=== PATIENT | female | born 2000 | race Caucasian/White ===

== ENCOUNTER 2019-09-02 21:30 | Outpatient (CLI) | payer SELFPAY ==
[2019-09-02 22:47] LABS: BASOPHILS 0.2 % (0-2); EOSINOPHILS 0 % (0-7); HEMATOCRIT 31.7 % (36.0-48.0); HEMOGLOBIN 10.3 g/dL (12-16); IMMATURE GRANULOCYTES 0.4 % (0-5); LYMPHOCYTES 8.6 % (15-50); MCH 28.3 pg (26.0-34.0); MCHC 32.5 g/dL (31.0-37.0); MCV 87.1 fL (80.0-100.0); MEAN PLATELET VOLUME 9.1 fL (7.4-10.4); MONOCYTES 4.8 % (2-11); PLATELET COUNT 234 10x3/uL (130-400); RBC 3.64 10x6/uL (4.00-5.40); RDW 12.4 % (11.5-14.5); WBC 11.4 10x3/uL (4.8-10.8)
[2019-09-02 22:56] LABS: BILIRUBIN NEGATIVE (NEGATIVE); GLUCOSE NEGATIVE (NEGATIVE); KETONE NEGATIVE (NEGATIVE); NITRITE NEGATIVE (NEGATIVE); SPECIFIC GRAVITY 1.005 (1.005-1.020); UROBILINOGEN NORMAL (NORMAL)
[2019-09-02 23:00] LABS: BACTERIA MANY /hpf (NEGATIVE); RED CELLS - URINE 0-5 /hpf (0-5); WHITE CELLS - URINE 25-50 /hpf (NEGATIVE)
[2019-09-03 00:25] LABS: BILIRUBIN NEGATIVE (NEGATIVE); GLUCOSE NEGATIVE (NEGATIVE); KETONE MODERATE mg/dL (NEGATIVE); NITRITE NEGATIVE (NEGATIVE); UROBILINOGEN NORMAL (NORMAL)
[2019-09-03 00:27] LABS: BACTERIA FEW /hpf (NEGATIVE); EPITHELIAL CELLS 0-5 /hpf (0-5); RED CELLS - URINE 0-5 /hpf (0-5); WHITE CELLS - URINE 0-5 /hpf (NEGATIVE)
== END 2019-09-03 02:35 | disposition home or self-care (01) ==
LOC: D.LDO 21:30 → D.LD 23:45 → D.LDO 09-03 02:35
PROVIDERS: ATTEND Obstetrics & Gynecology
DX: O36.8120 Decreased fetal movements, second trimester, not applicable or unspecified (principal); Z3A.27 27 weeks gestation of pregnancy

== ENCOUNTER → 2019-09-13 17:33 | Outpatient (CLI) | payer SELFPAY ==
[2019-09-13 18:02] LABS: BILIRUBIN NEGATIVE (NEGATIVE); GLUCOSE NEGATIVE (NEGATIVE); KETONE SMALL mg/dL (NEGATIVE); NITRITE NEGATIVE (NEGATIVE); SPECIFIC GRAVITY 1.015 (1.005-1.020); UROBILINOGEN NORMAL (NORMAL)
[2019-09-13 18:07] LABS: BACTERIA MODERATE /hpf (NEGATIVE); EPITHELIAL CELLS 0-5 /hpf (0-5); RED CELLS - URINE 0-5 /hpf (0-5); WHITE CELLS - URINE 0-5 /hpf (NEGATIVE)
== END | disposition home or self-care (01) ==
LOC: D.LDO 17:33
PROVIDERS: ATTEND Obstetrics & Gynecology
DX: O26.899 Other specified pregnancy related conditions, unspecified trimester (principal); Z3A.00 Weeks of gestation of pregnancy not specified; R10.30 Lower abdominal pain, unspecified

== ENCOUNTER 2019-10-02 20:57 | Outpatient (CLI) | payer SELFPAY ==
[2019-10-02 21:32] LABS: GLUCOSE NEGATIVE (NEGATIVE); KETONE NEGATIVE (NEGATIVE); NITRITE NEGATIVE (NEGATIVE); UROBILINOGEN NORMAL (NORMAL)
[2019-10-02 21:33] LABS: BACTERIA MANY /hpf (NEGATIVE); BILIRUBIN NEGATIVE (NEGATIVE); RED CELLS - URINE 0-5 /hpf (0-5); WHITE CELLS - URINE 25-50 /hpf (NEGATIVE)
== END 2019-10-02 23:37 | disposition home or self-care (01) ==
LOC: D.LDO 20:57
PROVIDERS: ATTEND Obstetrics & Gynecology
DX: O26.899 Other specified pregnancy related conditions, unspecified trimester (principal); Z3A.00 Weeks of gestation of pregnancy not specified; R10.2 Pelvic and perineal pain

== ENCOUNTER 2019-10-22 13:11 | Observation (INO) | payer MEDICAID ==
[~2019-10-22] VITALS: Ht 162.6 cm; Wt 62.3 kg
[2019-10-22 14:40] LABS: BILIRUBIN NEGATIVE (NEGATIVE); GLUCOSE NEGATIVE (NEGATIVE); KETONE NEGATIVE (NEGATIVE); NITRITE NEGATIVE (NEGATIVE); SPECIFIC GRAVITY 1.005 (1.005-1.020); UROBILINOGEN NORMAL (NORMAL)
[2019-10-22 14:41] LABS: BACTERIA MANY /hpf (NEGATIVE); RED CELLS - URINE 0-5 /hpf (0-5); WHITE CELLS - URINE 25-50 /hpf (NEGATIVE); YEAST <1+ /hpf (NONE SEEN)
[2019-10-22] MEDS ORDERED: NASAL SPRAY (16:17)
[2019-10-22] MEDS ORDERED: CELEXA10 MG PO (16:18)
[2019-10-22 16:24] LABS: HEMATOCRIT 32.6 % (36.0-48.0); HEMOGLOBIN 10.3 g/dL (12-16); MCH 26.5 pg (26.0-34.0); MCHC 31.6 g/dL (31.0-37.0); MCV 83.8 fL (80.0-100.0); MEAN PLATELET VOLUME 9.4 fL (7.4-10.4); RBC 3.89 10x6/uL (4.00-5.40); RDW 12.4 % (11.5-14.5); WBC 12.1 10x3/uL (4.8-10.8)
[2019-10-22 17:05] VITALS: BP 119/71; Ht 162.6 cm; Wt 62.3 kg
--- NOTE | 2019-10-23 17:42 | MORECARE ---
CASE MANAGEMENT DISCHARGE SUMMARY PATIENT: TACO EDWARD UNIT: [id number] ADM DATE: 10/22/19 AGE: 19 : 99 SEX: F ROOM/BED: D.1278 AUTHOR: EFLTON LUDWIG PHYSICIAN: REFERRING PHYSICIAN: MARCOS BRISCOE DO DATE OF SERVICE: 10/23/19 Discharge Plan Patient Name: TACO EDWARD Facility: [facility]:[place] : 2000 Planned Disposition: Home Anticipated Discharge Date: 10/23/19 Discharge Date: Expected LOS: 1 Initial Reviewer: [email or web address] Initial Review Date: 10/22/2019 Generated: 10/23/19 6:41 pm Patient Name: TACO EDWARD Page 29396 at 1742 All edits/amendments must be made on the electronic document DICTATION DATE: 10/23/191740 CONTROLS DESIGN ENGINEER: NANCY 10/23/191740 RPT#: [id number] DC DATE: STATUS: ADM IN [facility] [address] [place] [address] END OF REPORT
[2019-10-24 05:09] LABS: RAPID PLASMA REAGIN Non Reactive (Non Reactive)
--- NOTE | 2019-10-26 08:42 | MORECARE ---
CASE MANAGEMENT DISCHARGE SUMMARY PATIENT: TACO EDWARD UNIT: [id number] ADM DATE: 10/22/19 AGE: 19 : 99 SEX: F ROOM/BED: D.1278 AUTHOR: FELTON LUDWIG PHYSICIAN: REFERRING PHYSICIAN: MARCOS BRISCOE DO DATE OF SERVICE: 10/26/19 Discharge Plan Patient Name: TACO EDWARD Facility: [facility]:[place] : 2000 Planned Disposition: Home Anticipated Discharge Date: 10/23/19 Discharge Date: 10/23/2019 Expected LOS: 1 Initial Reviewer: [email or web address] Initial Review Date: 10/22/2019 Generated: 10/26/19 9:41 am Last DP export: 10/23/19 4:42 p Patient Name: TACO EDWARD Page 70920 at 0842 All edits/amendments must be made on the electronic document DICTATION DATE: 10/26/19840 IDEA WORKER: NANCY 10/26/19 0841 RPT#: [id number] DC DATE:10/23/19 STATUS: DIS IN [facility] [address] [facility] [place] [address] END OF REPORT
== END 2019-10-23 17:56 | disposition home or self-care (01) ==
LOC: D.LDO 13:11 → D.LD 16:10 → OBSVTIME 17:00 → D.LD 10-23 17:56
PROVIDERS: ADMIT Obstetrics & Gynecology; ATTEND Student in an Organized Health Care Education/Training Program
DX: O47.03 False labor before 37 completed weeks of gestation, third trimester (principal); Z3A.34 34 weeks gestation of pregnancy

== ENCOUNTER 2019-10-28 19:29 | Outpatient (CLI) | payer MEDICAID ==
[2019-10-22 17:05] VITALS: BMI 23.5
[~2019-10-28 19:29] MED LIST: CELEXA10 MG PO; NASAL SPRAY
[2019-10-28 20:40] LABS: BILIRUBIN NEGATIVE (NEGATIVE); GLUCOSE NEGATIVE (NEGATIVE); KETONE NEGATIVE (NEGATIVE); NITRITE NEGATIVE (NEGATIVE); UROBILINOGEN NORMAL (NORMAL)
[2019-10-28 20:41] LABS: BACTERIA FEW /hpf (NEGATIVE); EPITHELIAL CELLS 0-5 /hpf (0-5); RED CELLS - URINE OCC /hpf (0-5)
== END 2019-10-28 21:55 | disposition home or self-care (01) ==
LOC: D.LDO 19:29
PROVIDERS: ATTEND Obstetrics & Gynecology
DX: O36.8130 Decreased fetal movements, third trimester, not applicable or unspecified (principal); Z3A.35 35 weeks gestation of pregnancy

== ENCOUNTER 2019-11-12 17:20 | Outpatient (CLI) | payer MEDICAID ==
[2019-10-22 17:05] VITALS: BMI 23.5
== END 2019-11-12 23:08 | disposition home or self-care (01) ==
LOC: D.LDO 17:20
PROVIDERS: ATTEND Obstetrics & Gynecology
DX: O26.899 Other specified pregnancy related conditions, unspecified trimester (principal); Z3A.00 Weeks of gestation of pregnancy not specified; N85.8 Other specified noninflammatory disorders of uterus

== ENCOUNTER 2019-11-13 15:17 | Inpatient (IN) | payer MEDICAID ==
[~2019-11-13] VITALS: Ht 162.6 cm; Wt 62.1 kg
[2019-11-13 16:46] LABS: HEMATOCRIT 33.7 % (36.0-48.0); HEMOGLOBIN 10.7 g/dL (12-16); MCH 26.4 pg (26.0-34.0); MCHC 31.8 g/dL (31.0-37.0); MEAN PLATELET VOLUME 10.5 fL (7.4-10.4); RBC 4.06 10x6/uL (4.00-5.40); RDW 13.6 % (11.5-14.5); WBC 11.7 10x3/uL (4.8-10.8)
--- NOTE | 2019-11-13 17:41 | MORECARE ---
CASE MANAGEMENT DISCHARGE SUMMARY PATIENT: TACO EDWARD UNIT: [id number] ADM DATE: 11/13/19 AGE: 19 : 99 SEX: F ROOM/BED: D.1276 AUTHOR: FELTON LUDWIG PHYSICIAN: REFERRING PHYSICIAN: CHANTAL AMAYA MD DATE OF SERVICE: 11/13/19 Discharge Plan Patient Name: TACO EDWARD Facility: [facility]:[place] : 2000 Planned Disposition: Home Anticipated Discharge Date: Discharge Date: Expected LOS: 0 Initial Reviewer: [email or web address] Initial Review Date: 11/13/2019 Generated: 11/13/19 6:40 pm Patient Name: TACO EDWARD Page 57906 at 1741 All edits/amendments must be made on the electronic document DICTATION DATE: 11/13/191739 ELECTRIC APPLIANCE INSTALLER: NANCY 11/13/191739 RPT#: [id number] DC DATE: STATUS: ADM IN [facility] [address] [place] [address] END OF REPORT
--- NOTE | 2019-11-13 17:47 | MORECARE ---
CASE MANAGEMENT DISCHARGE SUMMARY PATIENT: TACO EDWARD UNIT: [id number] ADM DATE: 11/13/19 AGE: 19 : 99 SEX: F ROOM/BED: D.1276 AUTHOR: FELTON LUDWIG PHYSICIAN: REFERRING PHYSICIAN: CHANTAL AMAYA MD DATE OF SERVICE: 11/13/19 Discharge Plan Patient Name: TACO EDWARD Facility: [facility]:[place] : 2000 Planned Disposition: Home Anticipated Discharge Date: Discharge Date: Expected LOS: 0 Initial Reviewer: [email or web address] Initial Review Date: 11/13/2019 Generated: 11/13/19 6:47 pm Patient Name: TACO EDAWRD Page 14312 at 9300 All edits/amendments must be made on the electronic document DICTATION DATE: 11/13/191746 CAREER CONSULTANT: NANCY 11/13/191746 RPT#: [id number] [place] DATE: STATUS: ADM IN [facility] [address] [place] [address] END OF REPORT
[2019-11-13 19:59] VITALS: BP 146/70; Ht 162.6 cm; Wt 62.1 kg
--- NOTE | 2019-11-14 04:58 | NUR ---
RESTING QUIETLY IN BED W/ IN PT'S ARMS. W/O SIGNS OF DISTRESS. PT EDUCATION REGARDING NEEDS TO BE IN OPEN CRIB WHILE PT SLEEPS
--- NOTE | 2019-11-14 05:53 | NUR ---
resting quietly, w/ in pt arms, fundus firm, lochia scant, w/o c/o pain or discomfort
--- NOTE | 2019-11-14 06:35 | NUR ---
assisted up to br,voided qs. assisted w/ rivera care, rivera pads given. returned to bed, steady gait
--- NOTE | 2019-11-14 07:05 | NUR ---
page to oumar moise porter head for epidural cath removal, call returned, report given regarding resistace met when trying to pull out epidural cath, repositioned several times and inability to remove. states will come up later today to remvoe it
[2019-11-14 07:13] LABS: RAPID PLASMA REAGIN Non Reactive (Non Reactive)
--- NOTE | 2019-11-14 07:35 | NUR ---
ASSUMED CARE OF THIS PATIENT LAYING ON RIGHT SIDE, EYES CLOSED RESPIRATIONS EVEN. INFANT IN CRIB. SIDERAILS UP X 2, CALL LIGHT IN REACH. WILL COMPLETE SHIFT ASSESSMENT WHEN AWAKE.
--- NOTE | 2019-11-14 07:53 | NUR ---
SITTING UP IN BED. ASKED FOR APPLE JUICE AND DRY CEREAL. NO OTHER REQUESTS AT PRESENT.
[2019-11-14 08:28] VITALS: BP 104/57
--- NOTE | 2019-11-14 08:28 | NUR ---
SHIFT ASSESSMENT WAS COMPLETED. SCHEDULED MEDS GIVEN. DISCUSSED BACK ACHING. SAYS IT ELENA "WHEN I PEE". ENCOURAGED CONTINUED USE OF DELMIS-BOTTLE WITH BETADINE AND USE OF DERMOPLAST SPRAY FOR PAIN RELIEF. VERBALIZED UNDERSTANDING. ASKED ABOUT NEXT . LAST FEED AT O230. INSTRUCTED INFANT SHOULD BE FEED APPROX EVERY 3-4 HOURS WHEN . TO ALTERNATE START BREAST BUT ALLOW TO FEED ON BOTH SIDES AT EACH FEEDING. ENCOURAGE DRINKING PLENTY OF WATER. NEEDS TO VOID. UP TO BATHROOM. REMINDED TO KEEP EYE ON INFANT, EVEN WHEN IN BATHROOM. VERBALIZED UNDERSTANDING.
--- NOTE | 2019-11-14 08:48 | NUR ---
NURSERY RN IN ROOM FOR INFANT ASSESSMENT AND ASSIST WITH .
--- NOTE | 2019-11-14 10:30 | NUR ---
LAYING IN BED. SAYS HER BACK PAIN IS BETTER, NOW 09/17 ACHIING. WAITING ON ANESTHESIA-TRADING SPECIALIST TO ARRIVE FOR REMOVAL OF EPIDURAL CATHETER. IN CRIB. DENIES NEEDING ANYTHING AT PRESENT. C/O FEELING HOT. AC TURNED DOWN AND FAN ON LOW FOR PATIENT. AC CURRENTLY BEING WORKED ON FOR WHOLE HOSPITAL. CALL LIGHT IN REACH. UP AD JANEE. TO CALL IF ANYTHING ELSE IS NEEDED.
--- NOTE | 2019-11-14 11:10 | NUR ---
Rudolph BROCK, DIRECTOR BLOOD BANK HERE. REMOVED EPIDURAL CATHETER WITHOUT DIFFICULTY. BLACK TIP INTACT.
--- NOTE | 2019-11-14 12:13 | NUR ---
SITTING IN BED HOLDING . JUST FINISHED . PT CONCERNED IS NOT GETTING ENOUGH. DISCUSSED COLOSTRUM, BREAST MILK, STOMACH SIZE, INFANT SIGNS OF SATISFACTION AND BREAST CARE. VERBALIZED UNDERSTANDING. CURRENTLY SLEEPING, < 24 HOURS OLD. DENIES NEEDING ANYTHING AT PRESENT. WAITING FOR FOB TO RETURN TO HOSPITAL. ENCOURAGE TO GET OOP AND MOVE AROUND. SIDERAILS UP X 2, CALL LIGHT IN REACH.
--- NOTE | 2019-11-14 14:01 | NUR ---
SITTING UP IN BED. SAID SHE JUST FED BABY. DENIES NEEDING ANYTHING. CALL LIGHT IN REACH. WILL HAVE SHOWER AND MOVE TO NEW ROOM WHEN IT IS AVAILABLE.
--- NOTE | 2019-11-14 14:34 | NUR ---
AMBULATED TO CLEAN ROOM 1274. ALL BELONGINGS REMOVED FROM ROOM AND CARRIED TO CLEAN ROOM. DESIRES TO WAIT UNTIL LATE TONIGHT TO TAKE A SHOWER. FOB WAS HERE, BROUGHT FOOD AND LEFT. DISCUSSED DELMIS-CARE WITH BETADINE AND WARM WATER. SAYS SHE FEELS PRESSURE IN TAILBONE, LOW BACK AREA. EXPLAINED THAT COCCYX/SACRUM MOVE SLIGHTLY DURING L&D AND EXPLAINED MUSCLE STRETCHING. THIS SENSATION IS NOT UNCOMMON. RECOMMENDED REST, MOVEMENT AND SHOWER WITH WARM WATER. DISCUSSED KEGAL EXERCISES. VERBALIZED UNDERSTANDING. DESIRES TO TAKE A NAP NOW. ASKED IF SHE COULD HAVE BABY IN BED. EXPLAINED TO PATIENT THAT SHE CANNOT SLEEP WITH BABY IN BED FOR SAFETY REASONS. THAT NEEDS TO BE IN CRIB IF SHE DESIRES TO SLEEP. VERBALIZED UNDERSTANDING. INFANT IN CRIB. SIDERAILS UP X 2, CALL LIGHT IN REACH.
[2019-11-14 14:49] VITALS: BP 105/55
--- NOTE | 2019-11-14 14:50 | NUR ---
LAYING IN BED, TO NURSERY. SCHEDULED TORADO/TYLENOL GIVEN. 01/17 BACK PAIN, SHARP "RADIATES UP SPINE". WANT TO WAIT ON TAKING WARM SHOWER. OFFERED EXTRA PILLOWS FOR POSITIONING/COMFORT. DESIRES TO NAP, "THIS BED FEELS BETTER THAN THE OTHER ONE". WILL REEVALUATE BACK PAIN AFTER PAIN MEDICATION.
--- NOTE | 2019-11-14 16:30 | NUR ---
SAYS SHE JUST WOKE UP FROM A NAP. SAYS HER PAIN IS A LITTLE BETTER 6-12/17 BUT "I FEEL STIFF BECAUSE OF HOW I WAS LAYING". REGULAR DIET SERVED. ENCOURAGED OUT OF BED AND AMBULATE IN THE [place] AFTER EATING. ALSO TO RECONSIDER SHOWER. CALL LIGHT IN REACH. TO CALL IF ANYTHING IS NEEDED.
--- NOTE | 2019-11-14 17:28 | NUR ---
SLEEPING ON BACK, RESPIRATIONS EVEN. INFANT IN NURSERY. SIDERAILS UP X 2, CALL LIGHT IN REACH.
[2019-11-14 19:54] VITALS: BP 120/73
--- NOTE | 2019-11-14 19:56 | NUR ---
PT REC'D SITTING UP IN BED, MIL AT BEDSIDE, OBSERVED , SL D/C'D AND SITE COVERED W/ BANDAID. ICE PACKS GIVEN FOR DELMIS AREA, LINENS GIVEN FOR SHOWER, STATES WILL GET UP TO SHOWER SOON
--- NOTE | 2019-11-14 21:02 | NUR ---
pt showered, sitting up eating [employer], medicated per orders w/ tylenol no further needs voiced
--- NOTE | 2019-11-14 22:20 | NUR ---
sitting up in bed holding . states is well. mil at bs, no needs voiced at this time
--- NOTE | 2019-11-14 23:27 | NUR ---
resting quielty in right lateral position, arouses easily to name called, mil at bedside holding . no needs voiced
--- NOTE | 2019-11-15 01:35 | NUR ---
assisted pt with latch to left breast with use of nipple shield initiated no needs voiced at this time
--- NOTE | 2019-11-15 03:30 | NUR ---
RESTING QUIETLY IN ROOM, MIL AT BEDSIDE, NO NEEDS VOICED AT THIS TIME
--- NOTE | 2019-11-15 04:28 | NUR ---
ROUNDS MADE. PT RESTING QUIETLY IN LOW JOHNSON'S W/EYES CLOSED. RESP EVEN AND UNLABORED. PT LEFT UNDISTURBED AT THIS TIME TO ALLOW FOR REST.
--- NOTE | 2019-11-15 06:13 | NUR ---
ROUNDS MADE. PT NOW LYING TO RT SIDE. RESP EVEN AND UNLABORED. PT LEFT UNDISTURBED.
[2019-11-15 07:33] VITALS: BP 112/64
--- NOTE | 2019-11-15 07:33 | NUR ---
AROUSED FROM SLEEP FOR SHIFT ASSESSMENT. ASSESSMENT COMPLETED. 8 BACK PAIN. SAYS SHE HAS BEEN LAYING IN ONE POSITION. ENCOURAGED MOVEMENT AND OOB. WILL GIVE SCHEDULED TYLENOL AND OBTAIN 800 MG MOTRIN FROM PHARMACY FOR RELIEF. NON-SMOKER, , SAYS SHE BELIEVES SHE HAS RECEIVED TDAP VACCINE. NO [place] IMMUNIZATION RECORD FOUND. A+ RUBELLA IMMUNE, GBS NEG. REQUESTED ADDITIONAL BREAKFAST ITEMS. ALLERGIC TO [place], DIET ORDER CHANGED AND INCLUDED THIS INFORMATION. IN NURSERY. VISITOR SLEEPING ON COUCH. SIDERAILS UP X2, CALL LIGHT IN REACH.
--- NOTE | 2019-11-15 08:26 | NUR ---
HAS REACHED MAX DOSE FOR TYLENOL IN 24 HOURS. MOTRIN 800 MG GIVEN PO FOR RELIEF OF LOW BACK PAIN. 01/17 SHARP, ACHING AT EPIDURAL SITE. ALSO STATES "IT'S SHARP DOWN MY SPINE WHEN I BEND MY NECK WAY FORWARD." DOES NOT CONTINUE WITH NECK IN NORMAL POSITION. ENCOURAGED OOB MOVEMENT. IN NURSERY. VISITOR ON COUCH. UP TO BATHROOM TO VOID. USING BETADINE AND WARM WATER FOR DELMIS-CARE.
--- NOTE | 2019-11-15 08:46 | NUR ---
RN NEUROSURGICAL VISITED PATIENT. ANTICIPATE DC HOME THIS AM.
[2019-11-15] MEDS ORDERED: TYLENOL W/CODEI1 TAB PO (09:08)
--- NOTE | 2019-11-15 10:25 | NUR ---
DC TEACHING COMPLETED TO INCLUDE VERBAL AND WRITTEN INFORMATION ON CARE, PP DEPRESSION, S&S INFECTION, BREASTCARE/, DANGER SIGNS, MEDICATION ADMINISTRATION, SUICIDE PREVENTION HOT LINE, TDAP, AND FOLLOW-UP. WAS ON CITALOPRAM DURING . ASKED ABOUT TAKING WHILE . WILL OBTAIN INFORMATION FOR PATIENT. NO OTHER QUESTIONS AT THIS TIME. WILL DC HOME WITH .
--- NOTE | 2019-11-15 10:56 | NUR ---
WRITTEN INFORMATION ON CELEXA OBTAINED FROM [email or web address]. NURSERY RN ALSO CONTACTING LEGAL ADMINISTRATOR TO CHECK ON APPROVAL FOR MEDICATION WHILE . PT ALSO INSTRUCTED TO CONTACT MD AT CLINIC IF ANY QUESTIONS.
--- NOTE | 2019-11-15 11:06 | NUR ---
PER NURSERY RN, DR ALVARENGA, FLAG SIGNALER SAYS PT SHOULD BE ABLE TO BREASTFEED WHILE TAKING CELEXA. PT NOTIFIED. WRITTEN INFORMATION ON CELEXA WAS GIVEN. INSTRUCTED PT TO MONITOR FOR EXCESSIVE DROWSINESS OR WT LOSS. VERBALIZED UNDERSTANDING. DC'D TO CAR VIA WHEELCHAIR. INFANT IN CARSEAT. FAMILY MEMBER DRIVING. ALL BELONGINGS REMOVED FROM ROOM. HAS DC INSTRUCTIONS AND PRESCRIPTION.
--- NOTE | 2019-11-16 09:44 | MORECARE ---
CASE MANAGEMENT DISCHARGE SUMMARY PATIENT: TACO EDWARD UNIT: [id number] ADM DATE: 11/13/19 AGE: 19 : 99 SEX: F ROOM/BED: D.1274 AUTHOR: FELTON LUDWIG PHYSICIAN: REFERRING PHYSICIAN: CHANTAL AMAYA MD DATE OF SERVICE: 11/16/19 Discharge Plan Patient Name: TACO EDWARD [facility] [facility] 2000 Planned Disposition: Home Anticipated Discharge Date: Discharge Date: 11/15/2019 Expected LOS: 0 Initial Reviewer: [email or web address] Initial Review Date: 11/13/2019 Generated: 11/16/19 10:44 am Last DP export: 11/13/19 4:47 pm Patient Name: TACO EDWADR Page 24470 at 0944 All edits/amendments must be made on the electronic document DICTATION DATE: 11/16/1944 BIOFUELS PRODUCTION TECHNICIAN: NANCY 11/16/1945 RPT#: [id number] DC DATE:11/15/19 STATUS: DIS IN [facility] [address] [place] [address] END OF REPORT
== END 2019-11-15 11:06 | disposition home or self-care (01) | DRG 807 ==
LOC: D.LD 15:17
PROVIDERS: ADMIT Obstetrics & Gynecology; ATTEND Obstetrics & Gynecology
PROC: 10E0XZZ Delivery of Products of Conception, External Approach (ICD-10-PCS; principal; 2019-11-14)
PROC: 0HQ9XZZ Repair Perineum Skin, External Approach (ICD-10-PCS; 2019-11-14)
PROC: 10907ZC Drainage of Amniotic Fluid, Therapeutic from Products of Conception, Via Natural or Artificial Opening (ICD-10-PCS; 2019-11-14)
DX: O70.0 First degree perineal laceration during delivery (principal); Z37.0 Single live birth; Z3A.37 37 weeks gestation of pregnancy